=== PATIENT | female | born 1970 | race Caucasian/White ===

== ENCOUNTER 2022-07-22 14:30 | Emergency (ER) | payer BC ==
[~2022-07-22] VITALS: Ht 170.2 cm; Wt 71.7 kg
[2022-07-22 14:59] LABS: HEMATOCRIT 45.9 % (31.2-41.9); MEAN CORPUSCULAR HEMOGLOBIN 29.7 uug (24.7-32.8); MEAN CORPUSCULAR VOLUME 87.5 fL (75.5-95.3); PLATELET COUNT (AUTO) 345 K/uL (179-408)
[2022-07-22] MEDS ORDERED: ONDANSETRON 4 MG/2 ML VIAL IV ONE (15:00)
[2022-07-22] MEDS ORDERED: ASPIRIN 81 MG TAB.CHEW PO ONE (15:00)
[2022-07-22] MEDS ORDERED: ONDANSETRON 4 MG/2 ML VIAL ONE (15:04)
[2022-07-22] MEDS ORDERED: ASPIRIN 81 MG TAB.CHEW ONE (15:04)
[2022-07-22 15:46] LABS: CARBON DIOXIDE 22 mmol/L (21-32); CHLORIDE 102 mmol/L (98-107); CREATININE 0.9 mg/dL (0.6-1.3); GLUCOSE 103 mg/dL (74-106); POTASSIUM 3.6 mmol/L (3.5-5.1); UREA NITROGEN, BLOOD 13 mg/dL (7-18)
[2022-07-22 15:55] LABS: ALANINE AMINOTRANSFERASE 38 U/L (14-59); ALKALINE PHOSPHATASE 133 U/L (50-136); ASPARTATE AMINOTRANSFERASE 27 U/L (15-37); BILIRUBIN,DIRECT 0.2 mg/dL (0.0-0.2); BILIRUBIN,TOTAL 1.1 mg/dL (0.2-1.0)
[2022-07-22] MEDS ORDERED: IV NS 1000 ML 1,000 ML IV ONE ×2 (16:00→19:00)
[2022-07-22 18:52] LABS: *BILIRUBIN,URIN 3+ (NEGATIVE); *BLOOD, URINE NEGATIVE (NEGATIVE); *CLARITY,URINE SLIGHTLY CLOUDY (CLEAR); *COLOR,URINE YELLOW (YELLOW); *KETONES,URINE 2+ (NEGATIVE); *UROBILINOGEN,URINE 0.2 E.U./dl (NORMAL); LEUKOCYTE ESTERASE ,URINE NEGATIVE (NEGATIVE); NITRITE, URINE NEGATIVE (NEGATIVE); UGLUCOSE NEGATIVE (NEGATIVE)
[2022-07-22] MEDS ORDERED: PROCHLORPERAZINE EDISYLATE 10 MG/2 ML VIAL IV ONE (19:30)
--- NOTE | 2022-07-22 19:30 | NUR ---
Assumed care of patient from day shift RN. Family at bedside. Patient AAOx4. In no apparent distress. IV site on right wrist intact and patent. IVF infusing.
[2022-07-22] MEDS ORDERED: PROCHLORPERAZINE EDISYLATE 10 MG/2 ML VIAL ONE (19:38)
[2022-07-22] MEDS ORDERED: IOHEXOL 300MG/ML 100 ML INFUS..BTL ONE (22:30)
[2022-07-22] MEDS ORDERED: IV NORMAL SALINE 250 ML IV ONE (22:30)
[2022-07-22] MEDS ORDERED: SWABABLE VALVE TRANSFER SET EA MC ONE (22:30)
--- NOTE | 2022-07-22 22:30 | NUR ---
Informed Virtual Classroom Manager/Maqt patient ready for CT.
--- NOTE | 2022-07-22 22:41 | NUR ---
Patient taken to CT via transport.
--- NOTE | 2022-07-22 22:52 | NUR ---
Back from CT.
[2022-07-22] MEDS ORDERED: PIPERACILLIN SODIUM/TAZOBACTAM 4.5 G in IV DEXTROSE 5% 50 ML IV SCH (23:45)
[2022-07-22] MEDS ORDERED: PIPERACILLIN/TAZO 4.5 GM VIAL IV ONE (23:51)
--- NOTE | 2022-07-23 00:04 | NUR ---
Dr Perez at bedside.
[2022-07-23] MEDS ORDERED: METR500T PO (00:22)
[2022-07-23] MEDS ORDERED: PROC-11 PO (00:22)
[2022-07-23] MEDS ORDERED: AMOX-430 PO (00:22)
[2022-07-23] MEDS ORDERED: HYDR-3980 PO (00:22)
[2022-07-23 00:50] VITALS: BP 139/75
--- NOTE | 2022-07-23 00:50 | NUR ---
Patient discharged to home in stable condition. Written and verbal after care instructions given. Patient verbalizes understanding of instructions. Stressed follow up or return to ER for worsening s/s. Patient ambulated out of the ER with steady gait. All belongings with patient.
== END 2022-07-23 00:50 | disposition home or self-care (01) ==
LOC: ER 14:30
DX: R11.2 Nausea with vomiting, unspecified (principal); R19.7 Diarrhea, unspecified; R42 Dizziness and giddiness; E78.5 Hyperlipidemia, unspecified; I10 Essential (primary) hypertension
CPT/HCPCS: 99285; 74177; 96365; 96361; 71045; 96375; 80076; 80048; 81003; 83735; 85025; 84484; 36415; 93005; J2405; Q9967; J2543; J0780; J7040 ×2; A4663